=== PATIENT | male | born 1955 | race Caucasian/White ===

== ENCOUNTER → 2022-05-18 13:28 | Outpatient (CLI) | payer MEDICARE, SELFPAY ==
--- NOTE | 2022-05-18 13:48 | XR_ITS ---
FINAL REPORT CLINICAL HISTORY: PNEUMONIA COMPARISON: None FINDINGS: Two views of the chest were obtained. The heart size and pulmonary vascularity are within normal limits. The mediastinum is normal. No acute pulmonary abnormality is identified. There is no pneumothorax. The bony thorax is intact. IMPRESSION: No active cardiopulmonary disease. Reviewed, Interpreted and Dictated by Philippe Hastings III, MD Transcribed by Radha Melendez Authenticated and [facility]
[2022-05-18 15:22] LABS: Basophils # 0.1 K/mm3 (0-0.2); Basophils % 0.6 % (0.1-2.0); Eosinophils # 0.4 K/mm3 (0.0-0.4); Eosinophils % 3.1 % (0.1-12.0); Hematocrit 45.4 % (42.0-52.0); Hemoglobin 15.3 g/dL (14.1-18.0); Lymphocytes # 2.1 K/mm3 (0.7-4.5); Lymphocytes % 17.9 % (10-50); Mean Corpuscular HGB Conc 33.8 g/dL (31.8-35.4); Mean Corpuscular Hemoglobin 34.2 pg (27.0-31.2); Mean Corpuscular Volume 101.2 fl (80-94); Mean Platelet Volume 8.1 fl (7.4-10.4); Monocytes # 0.6 K/mm3 (0.1-1.0); Neutrophils # 8.6 K/mm3 (1.8-7.8); Neutrophils % 73.4 % (37.0-80.0); Platelet Count 219 K/mm3 (142-424); Red Blood Count 4.48 M/mm3 (4.60-6.20); Red Cell Distribution Width 13.1 % (11.5-17.5); White Blood Count 11.7 K/mm3 (4.8-10.8)
[2022-05-18 15:33] LABS: D-Dimer < 0.25 ug/mL (0.0-0.5)
[2022-05-18 15:41] LABS: C-Reactive Protein 9.4 mg/L (0-4)
[2022-05-22 20:19] LABS: D001-IgE D pteronyssinus <0.10 kU/L (Class 0); D002-IgE D farinae <0.10 kU/L (Class 0); E001-IgE Cat Dander <0.10 kU/L (Class 0); E005-IgE Dog Dander <0.10 kU/L (Class 0); E072-IgE Mouse Urine <0.10 kU/L (Class 0); G002-IgE Bermuda Grass <0.10 kU/L (Class 0); G006-IgE Timothy Grass <0.10 kU/L (Class 0); I006-IgE Cockroach, German <0.10 kU/L (Class 0); Immunoglobulin E, Total 71 IU/mL (6-495); M001-IgE Penicillium chrysogen <0.10 kU/L (Class 0); M002-IgE Cladosporium herbarum <0.10 kU/L (Class 0); M003-IgE Aspergillus fumigatus <0.10 kU/L (Class 0); M006-IgE Alternaria alternata <0.10 kU/L (Class 0); T001-IgE Maple/Box Elder <0.10 kU/L (Class 0); T003-IgE Common Silver Birch <0.10 kU/L (Class 0); T006-IgE Cedar, Mountain <0.10 kU/L (Class 0); T007-IgE Oak, White <0.10 kU/L (Class 0); T008-IgE Elm, American <0.10 kU/L (Class 0); T010-IgE Walnut <0.10 kU/L (Class 0); T011-IgE Maple Leaf Sycamore <0.10 kU/L (Class 0); T014-IgE Cottonwood <0.10 kU/L (Class 0); T015-IgE Ash, White <0.10 kU/L (Class 0); T022-IgE Pecan, Hickory <0.10 kU/L (Class 0); T070-IgE White Mulberry <0.10 kU/L (Class 0); W001-IgE Ragweed, Short <0.10 kU/L (Class 0); W011-IgE Thistle, Russian <0.10 kU/L (Class 0); W014-IgE Pigweed, Common <0.10 kU/L (Class 0); W018-IgE Sheep Sorrel <0.10 kU/L (Class 0)
== END ==
PROVIDERS: PCP Emergency Medicine; Visit Provider Internal Medicine Pulmonary Disease
DX: R06.09 Other forms of dyspnea; J45.909 Unspecified asthma, uncomplicated; Z86.711 Personal history of pulmonary embolism
CPT/HCPCS: 36415; 71046; 82785; 85025; 85378; 86003; 86140

== ENCOUNTER → 2022-06-22 14:51 | Outpatient (CLI) | payer MEDICARE, SELFPAY | PROVIDERS: PCP Emergency Medicine; Visit Provider Internal Medicine Pulmonary Disease | DX: R06.09 Other forms of dyspnea (principal) | CPT/HCPCS: 94060; 94618; 94726; 94729 ==

== ENCOUNTER → 2022-07-25 14:16 | Outpatient (CLI) | payer MEDICARE, SELFPAY ==
[2022-07-25 15:12] LABS: Erythrocyte Sedimentation Rate 36 mm/hr (0-20)
[2022-07-25 15:33] LABS: C-Reactive Protein 5.5 mg/L (0-4)
[2022-07-27 14:18] LABS: Anti-Cyclic Citrullinated Pept 6 units (0-19); RA Latex Turbid. 12.7 IU/mL (<14.0)
[2022-07-27 22:18] LABS: Antinuclear Antibodies, IFA Negative (.)
== END ==
PROVIDERS: PCP Emergency Medicine; Visit Provider Internal Medicine Pulmonary Disease
DX: R06.09 Other forms of dyspnea (principal); J84.9 Interstitial pulmonary disease, unspecified
CPT/HCPCS: 36415; 84550; 85651; 86038; 86140; 86200; 86431

== ENCOUNTER → 2022-09-13 14:45 | Outpatient (CLI) | payer MEDICARE, SELFPAY ==
--- NOTE | 2022-09-13 14:45 | CT_ITS ---
FINAL REPORT TECHNIQUE: Axial CT images were performed from the lung apices through the upper abdomen. High-resolution technique was utilized with supine on inspiration and expiration and prone on inspiration. CLINICAL HISTORY: soa ct chest high resolution x 3 FINDINGS: There is no axillary adenopathy. There is no hilar or mediastinal mass or adenopathy. Heart size is normal. There is no pericardial or pleural effusion. There are several calcified granulomas. There are ground-glass and nodular opacities in the anterior left lower lobe at the lung base. Nodules measure up to 8 mm. Findings are felt to be inflammatory, may represent pneumonia or mycobacterial/fungal disease. There are several less than 5 mm left upper lobe nodules which are nonspecific. There is no evidence of emphysema. No interstitial lung disease is identified. There is no bronchiectasis. There is fatty infiltration of the liver. The gallbladder is not seen, may be surgically absent. IMPRESSION: No evidence of emphysema, interstitial lung disease or bronchiectasis. Ground-glass nodule opacities in the left lower lobe as detailed above. Follow-up CT may be helpful. Reviewed, Interpreted and Dictated by Philippe Hastings III, MD Transcribed by Arabella Julian Authenticated and . [facility]
== END ==
PROVIDERS: PCP Emergency Medicine; Visit Provider Internal Medicine Pulmonary Disease
DX: J84.9 Interstitial pulmonary disease, unspecified (principal)
CPT/HCPCS: 71250

== ENCOUNTER → 2022-10-05 15:44 | Outpatient (CLI) | payer MEDICARE, SELFPAY ==
[2022-10-11 07:21] LABS: D001-IgE D pteronyssinus <0.10 kU/L (Class 0); D002-IgE D farinae <0.10 kU/L (Class 0); E001-IgE Cat Dander <0.10 kU/L (Class 0); E072-IgE Mouse Urine <0.10 kU/L (Class 0); G002-IgE Bermuda Grass <0.10 kU/L (Class 0); G006-IgE Timothy Grass <0.10 kU/L (Class 0); I006-IgE Cockroach, German <0.10 kU/L (Class 0); Immunoglobulin E, Total 113 IU/mL (6-495); M001-IgE Penicillium chrysogen <0.10 kU/L (Class 0); M002-IgE Cladosporium herbarum <0.10 kU/L (Class 0); M003-IgE Aspergillus fumigatus <0.10 kU/L (Class 0); M006-IgE Alternaria alternata <0.10 kU/L (Class 0); T001-IgE Maple/Box Elder <0.10 kU/L (Class 0); T003-IgE Common Silver Birch <0.10 kU/L (Class 0); T006-IgE Cedar, Mountain <0.10 kU/L (Class 0); T007-IgE Oak, White <0.10 kU/L (Class 0); T008-IgE Elm, American <0.10 kU/L (Class 0); T010-IgE Walnut <0.10 kU/L (Class 0); T011-IgE Maple Leaf Sycamore <0.10 kU/L (Class 0); T014-IgE Cottonwood <0.10 kU/L (Class 0); T015-IgE Ash, White <0.10 kU/L (Class 0); T022-IgE Pecan, Hickory <0.10 kU/L (Class 0); T070-IgE White Mulberry <0.10 kU/L (Class 0); W001-IgE Ragweed, Short <0.10 kU/L (Class 0); W011-IgE Thistle, Russian <0.10 kU/L (Class 0); W014-IgE Pigweed, Common <0.10 kU/L (Class 0); W018-IgE Sheep Sorrel <0.10 kU/L (Class 0)
[2022-10-13 07:59] LABS: Aspergillus fumigatus IgG Negative; Pigeon Serum Abs Negative
== END ==
LOC: LAB 15:45
PROVIDERS: PCP Emergency Medicine; Visit Provider Internal Medicine Pulmonary Disease
DX: J84.9 Interstitial pulmonary disease, unspecified (principal); J30.9 Allergic rhinitis, unspecified
CPT/HCPCS: 36415; 82785; 86003; 86331; 86602; 86606; 86609

== ENCOUNTER 2023-04-10 09:33 | Outpatient (CLI) | payer MEDICARE, SELFPAY ==
[2023-04-10] MEDS: ALBUTEROL 0.083% 2.5 MG/3 ML NEB IH (10:27)
--- NOTE | 2023-04-10 10:28 | PC.NURSE ---
PFT and 6 Minute Walk test completed without incident. Albuterol 0.083% given, via HHN, per written protocol. Pt tolerated tx well.
== END 2023-04-10 23:59 ==
LOC: RT 09:35
PROVIDERS: PCP Emergency Medicine; Visit Provider Internal Medicine Pulmonary Disease
DX: R06.09 Other forms of dyspnea (principal)
CPT/HCPCS: 94060; 94618; 94726; 94729

== ENCOUNTER 2024-04-09 13:02 | Outpatient (CLI) | payer MEDICARE, SELFPAY ==
[2024-04-09] MEDS: ALBUTEROL 0.083% 2.5 MG/3 ML NEB IH (14:20)
== END 2024-04-09 23:59 | disposition home or self-care (01) ==
LOC: RT 13:03
PROVIDERS: PCP Emergency Medicine; Visit Provider Internal Medicine Pulmonary Disease
DX: R06.09 Other forms of dyspnea (principal)
CPT/HCPCS: 94060; 94618; 94726; 94729; J7613

== ENCOUNTER 2025-01-19 15:44 | Outpatient (CLI) | payer MEDICARE, SELFPAY ==
--- NOTE | 2025-01-19 15:46 | XR_ITS ---
PROCEDURE INFORMATION: Exam: XR Chest Exam date and time: 01/19/2025 3:58 PM Age: 69 years old Clinical indication: Wheezing; Additional info: SOA, wheezing x 3 weeks, asthma TECHNIQUE: Imaging protocol: Radiologic exam of the chest. Views: 2 views. Total images: 2 COMPARISON: CT HR CHEST X3 09/13/2022 2:51 PM FINDINGS: Lungs: Bilateral hyperinflation is present. Pleural spaces: No pleural effusion. No pneumothorax. Heart/Mediastinum: No cardiomegaly. Bones/joints: Unremarkable. IMPRESSION: Bilateral hyperinflation is present.
== END 2025-01-19 23:59 | disposition home or self-care (01) ==
LOC: RAD 15:44
PROVIDERS: PCP Emergency Medicine; Visit Provider Internal Medicine Pulmonary Disease
DX: J98.4 Other disorders of lung (principal)
CPT/HCPCS: 71046